=== PATIENT | female | born 1975 | race Two or more races ===

== ENCOUNTER 2024-10-04 08:01 | Emergency (ER) | payer BC, SELFPAY ==
[2024-10-04 08:02] VITALS: BP 114/66
--- NOTE | 2024-10-04 08:39 | ED.MUSCINJ ---
HPI-Injury
General
Chief Complaint: Musculo-Skeletal Complaint
Source: patient
Exam Limitations: none
Time Seen by Provider: 10/04/24 08:27
Nursing documentation reviewed up to this point in time: agreed with
History of Present Illness-Injury
Is this injury a work related problem?: No
Is pt an associate of [facility]/[place]?: No
Initial Injury comments:
49-year-old female presents emergency department after hitting her finger in a door, and slipping and falling and hitting her right ribs. She denies hitting her head. She denies loss of consciousness. She was at home just prior to coming in, and
about to take her dog out.
Past History
Past History
ED Past Medical History: None
ED Past Surgical History: Cholecystectomy
Social History
Tobacco: Non-smoker
Alcohol: None
Drug: None
Living: with family
Review of Systems
Review of Systems
Allergies reviewed?: Yes
All Other Systems: Not applicable
Constitutional: Reports no symptoms
EENT: Reports no symptoms
Respiratory: Reports no symptoms
Cardiac: Reports no symptoms
ABD/GI: Reports no symptoms
: Reports no symptoms
Musculoskeletal: Reports other (right rib pain, right index finger pain)
Skin: Reports no symptoms
Neurological: Reports no symptoms
Endocrine: Reports no symptoms
Hematologic/Lymphatic: Reports no symptoms
Psychiatric: Reports no symptoms
Phy Exam
Physical Exam
Physical Exam:
Physical Exam
General: no apparent distress, not acutely ill
Neck: supple. no meningeal signs. normal posterior pharynx
Heart: s1/s2 regular rate and rhythm, no murmur. equal radial
pulses.
HEENT: Pupils equal round reactive to light, EOMI
Lungs: no acute respiratory distress. clear bilaterally, right lateral rib tenderness 8-10th ribs
Abdomen: normal bowel sounds. not tender. no CVAT
Neuro: alert and oriented. no focal neurological deficits cranial nerves II through XII intact, ambulates without difficulty
Skin: no rash, superficial laceration right index finger
Psychiatric: well kept. interactive and cooperative
Extremities: no edema. no calf tenderness. negative homans. good distal pulses
Injury Course
Orders/Labs/Results
Orders:
Orders
10/04/24 08:37
Finger(s)/Thumb 2 View Rt [CR Finger(s)/thumb Min 2 Vw Rt] Urgent
Comment:
Reason For Exam: rt index finger contusion, hit in door
Ribs, Right 3 View W/PA Chest [CR Ribs-right 3 Vw W/pa Chest*] Urgent
Comment:
Reason For Exam: right rib pain after fall
MDM/Problems Addressed
Differential Diagnosis Includes:
Pneumothorax, rib fracture, finger fracture
MDM/Problems Addressed:
49-year-old female with right index finger contusion and superficial laceration. Right rib contusion, no fracture seen. No pneumothorax. Stable for discharge. Patient states her tetanus is up-to-date.
*Radiology
Radiology exam reviewed: preliminary read by ED provider (Right index finger no fracture, rib series no fracture or pneumothorax) and radiology read reviewed (Right index finger no fracture, rib series no fracture or pneumothorax)
*Pulse Oximetry
Patient hypoxic: no
*Critical Care Note
Total Time (30-74mins, 75-104mins- exclusive of procedures): Not Applicable
Patient Management
Social determinants of health affecting care: Living situation and Strong social support
Escalation/DeEscalation of care consider admission/obs:
Admission not indicated
ED Attending Note
-
Portions of this chart may have been created with voice recognition software.� Occasional wrong word or��sound alike� substitutions may have occurred due to the inherent limitations of voice recognition software.
Discharge Plan
Departure
Patient Disposition: Home (Routine Discharge)
Date of Disposition: 10/04/24
Time of Disposition: 10:15
Patient with high blood pressure during this ER visit?: No
Condition: Good
Discharge Problem:
Contusion of rib on right side, Laceration of right index finger, Contusion of right index finger
Instructions: Rib injury in adults, Wound Care (DC), Contusion (DC)
Referrals:
Jackie Nix PA [Family Provider] - Call in 1-3 days for appt
Interventions
Interventions:
*Risk Screen - Suicide Last Done: 10/04/24 08:02
*General Assessment Last Done: 10/04/24 08:02
*Neglect/Abuse Screening Last Done: 10/04/24 08:02
ED-Musculoskeletal Assessment Last Done: 10/04/24 08:55
ED-Skin Assessment Last Done: 10/04/24 09:54
Discharge Date and Time
Print Language: OMANI
== END 2024-10-04 10:53 | disposition home or self-care (01) ==
LOC: EMR 08:01
PROVIDERS: EMERGENCY PHYSICIAN Emergency Medicine; FAMILY PHYSICIAN Physician Assistant Medical
DX: S20.211A Contusion of right front wall of thorax, initial encounter (principal); S61.210A Laceration without foreign body of right index finger without damage to nail, initial encounter; S60.021A Contusion of right index finger without damage to nail, initial encounter; W18.09XA Striking against other object with subsequent fall, initial encounter; Z90.49 Acquired absence of other specified parts of digestive tract
CPT/HCPCS: 99284; 71101; 73140

== ENCOUNTER → 2024-11-22 16:30 | Outpatient (REF) | payer BC, SELFPAY | LOC: WDC 16:30 | PROVIDERS: ATTENDING PHYSICIAN Physician Assistant Medical | DX: Z12.31 Encounter for screening mammogram for malignant neoplasm of breast (principal) | CPT/HCPCS: 77063; 77067 ==